=== PATIENT | female | born 1945 | race Caucasian/White ===

== ENCOUNTER 2021-09-01 10:07 | Emergency (ER) | payer OTHER, MEDICARE ==
[~2021-09-01] VITALS: Ht 154.9 cm; Wt 57.1 kg
[~2021-09-01 10:07] MED LIST: CRESTOR; ESTRADERM1 EACH; NEXIUM40 MG; PROPANOLOL
[2021-09-01 10:11] VITALS: BP 162/77
== END 2021-09-01 12:00 | disposition home or self-care (01) ==
LOC: ER 10:07
DX: S60.222A Contusion of left hand, initial encounter (principal); F02.80 Dementia in other diseases classified elsewhere, unspecified severity, without behavioral disturbance, psychotic disturbance, mood disturbance, and anxiety; I10 Essential (primary) hypertension; Z98.890 Other specified postprocedural states; Z90.710 Acquired absence of both cervix and uterus; Z79.899 Other long term (current) drug therapy; Z88.6 Allergy status to analgesic agent; Z88.5 Allergy status to narcotic agent; W22.8XXA Striking against or struck by other objects, initial encounter; Y93.89 Activity, other specified; Y92.89 Other specified places as the place of occurrence of the external cause; Y99.8 Other external cause status